=== PATIENT | male | born 1965 | race African-American/Black ===

== ENCOUNTER 2019-06-11 19:54 | Emergency (ER) | payer BC ==
[~2019-06-11] VITALS: Ht 165.1 cm; Wt 83.9 kg
--- NOTE | 2019-06-11 20:10 | NUR ---
ED Nurse Note: pt walked in c/o right shoulder pain x 3 days, pt denies any recent injuries nor trauma but reports he does physical work at work. no sx deformity nor wound nor contusion noted. cms intact. will cont monitor.
[2019-06-11 20:16] VITALS: BP 162/103
--- NOTE | 2019-06-11 20:30 | NUR ---
ED Nurse Note: ERMD notified regarding pt's accucheck, 100.
--- NOTE | 2019-06-11 20:34 | NUR ---
ED Nurse Note: arm sling applied per ERMd order on right shoulder.
[2019-06-11] MEDS ORDERED: IBUPROFEN600 MG ORAL (20:56)
[2019-06-11 21:15] VITALS: BP 145/95
--- NOTE | 2019-06-11 21:15 | NUR ---
ED Nurse Note: pt cleared to be d/c per ERMD, pt discharge and aftercare instruction provided w/ prescription, pt education done, pt advised to follow up with pcp or return to ed if changes in condition, pt verbalized understanding, vss, ambulatory w/steady gait, left w/ all belongings.
--- NOTE | 2019-06-12 13:17 | Diagnostic Imaging Report ---
Indication: Right shoulder pain COMPARISON: None Findings: 3 views of the right shoulder were obtained. There is calcium adjacent to the greater tuberosity of the humerus. Alignment is normal. No fracture is identified. IMPRESSION: Ossific tendinopathy of the rotator cuff
--- NOTE | 2019-06-13 15:33 | Emergency Room Report ---
History of Present Illness General Chief Complaint: Upper Extremity Injury Source: Patient Present Illness Allergies: Coded Allergies: No Known Allergies (Unverified , 06/11/19) Nursing Documentation-H Past Medical History: No Stated History Physical Exam Vital Signs Date Time Temp Pulse Resp B/P (MAP) Pulse Ox O2 Delivery O2 Flow Rate FiO2 06/11/19 20:03 98.6 94 18 162/103 (122) 97 Room Air Medical Decision Making Diagnostic Impression: Primary Impression: Shoulder pain Last Vital Signs Date Time Temp Pulse Resp B/P (MAP) Pulse Ox O2 Delivery O2 Flow Rate FiO2 06/11/19 21:15 98.6 89 18 145/95 99 Room Air Disposition: HOME, SELF-CARE Condition: Stable Scripts Ibuprofen* (MOTRIN*) 600 Mg Tablet 600 MG ORAL Q8H PRN for For Pain, #30 TAB 0 Refills Prov: Bari Graham MD 06/11/19 Departure Forms: Return to Work Return to Work in (Days): 3 Other Restrictions: no lifting greater than 20 lbs. wear sling Patient Instructions: Bicipital Tendonitis, Rotator Cuff Tendinitis Bari Graham MD Jun 13, 2019 15:33
== END 2019-06-11 21:15 | disposition home or self-care (01) ==
LOC: EMR 20:40
DX: M25.511 Pain in right shoulder (principal); M75.81 Other shoulder lesions, right shoulder
CPT/HCPCS: 82962; 99283